=== PATIENT | female | born 1990 | race Caucasian/White ===

== ENCOUNTER 2025-01-20 09:03 | Emergency (ER) | payer MEDICAID, SELFPAY ==
[2025-01-20 09:16] VITALS: BP 102/68; PULSE 81; RESP 16; TEMP 36.8; O2SAT 98
[2025-01-20 09:19] VITALS: BP 102/68; PULSE 81; RESP 16; TEMP 36.8; O2SAT 98
[2025-01-20 10:20] LABS: Glucose Negative (Negative)
--- NOTE | 2025-01-20 10:22 | ED.GENADUL_ITS ---
Discharge Plan Disposition Patient Disposition: Transfer-Acute Inpatient Care Specific Acute Inpt Facility: Other Condition: Stable Discharge Details Clinical Impression: Nausea & vomiting, Abdominal pain Primary Care Provider: Lula Varma ED Provider: Amy Zee Home Meds and New Rx's Prescriptions: No Action No Known Home Meds Discharge Instructions Additional Instructions: Please go directly to [facility] Do not eat or drink prior to your reassessment by the ED physician Referrals: Lula Varma PA [Primary Care Provider, Medicine] Discharge Data Discharge Date/Time-TO BE ENTERED AT DEPARTURE: 01/20/25 11:01 HPI General Date/Time Provider Initiated Documentation: 01/20/25 09:29 . HPI Narrative: This 34-year-old female presents 9 months status post gastric bypass at [facility]. She states that for the past week she has been having trouble holding down any food or fluid. She has been following the diet per bypass physician. She denies any abnormal bowel movements. She states that she has pain in her epigastrium and right upper quadrant when she does try to eat or drink gets with some nausea. She states she is felt great status post bypass until the past week. She has been able to hold down some food and fluids. She denies any chance of she denies any urinary symptoms she is mildly nauseous at this time without vomiting Related Data Home Medications ?Medication ?Instructions ?Recorded ?Confirmed Unknown [No Known Home Meds] 01/20/25 0 01/20/25 Allergies Allergy/AdvReac Type Severity Reaction Status Date / Time morphine Allergy Mild Hives Verified 01/20/25 09:20 General Stated Complaint: Abd Prob CHYNA: 3 Exam Narrative Exam Narrative: Alert and oriented 34-year-old female in no acute distress, mild tenderness to the epigastrium no rebound or guarding oropharynx patent moist mucous membranes no rebound or guarding on abdominal exam speech is clear alert and oriented x 4 no peripheral edema Course Vital Signs Vital signs: Vital Signs Temperature 36.8 C 01/20/25 09:16 Pulse 81 01/20/25 09:16 Respiratory Rate 16 01/20/25 09:16 Blood Pressure 102/68 01/20/25 09:16 Pulse Oximetry 98 01/20/25 09:16 Temperature 36.8 C 01/20/25 09:19 Temperature Source Oral 01/20/25 09:19 Pulse 81 01/20/25 09:19 Respiratory Rate 16 01/20/25 09:19 Blood Pressure 102/68 01/20/25 09:19 Blood Pressure Position Sitting 01/20/25 09:19 Pulse Oximetry 98 01/20/25 09:19 Oxygen Delivery Method Room Air 01/20/25 09:19 Oxygen Flow Rate 0 01/20/25 09:19 Pain Level 0 01/20/25 09:19 Comment Intermittent pain when her stomach is doing flips 01/20/25 09:19 Lab/Test Results Lab/Test Results: POC- Test(urine) Negative Medical Decision Making 34-year-old female presenting 9 months status post gastric bypass with some difficulties tolerating food and fluid and some epigastric pain. We unfortunately are experiencing a CT downtime and do not have capacity to perform CT scan which patient would benefit from at this time being that she is only 9 months status post gastric bypass. I will hold on labs as she will likely need transfer to a facility that can perform a CT scan. We discussed staying in our facility until 1 PM awaiting labs and CT however patient would like to return to work and is requesting discharge to a facility that may image her and fully evaluate her. I did discuss the case with [facility] they are unable to accept patient in transfer at this time. I spoke with Dr. Conn at [facility] and they are willing to accept this patient in transfer to the ED for evaluation at their discretion patient is quite stable at time of assessment. I have offered ambulance transport however patient has a vehicle and is requesting to drive I think she is stable at time of my assessment but I did recommend she have a family member drive her to [facility]. PFSH All Active Problems (Updated 01/20/25 @ 10:16 by CORRINE Dow) Abdominal pain (Acute) Nausea & vomiting (Acute) Social History Smoking/Tobacco Use Status: Never Smoking risk assessment performed?: Yes Alcohol Intake: never Drug use: Never Substance use type: does not use
== END 2025-01-20 11:01 | disposition short-term general hospital (02) ==
PROVIDERS: Emergency Provider Physician Assistant; PCP Physician Assistant
DX: R11.2 Nausea with vomiting, unspecified; R10.11 Right upper quadrant pain
CPT/HCPCS: 99285 ×2; 81025; 36415; 81003